=== PATIENT | male | born 1975 ===

== ENCOUNTER 2016-09-15 08:25 | Emergency (ER) | payer SELFPAY ==
[2016-09-15 09:10] LABS: BASOPHILS 0.1 % (0.0-2.0); HEMATOCRIT 45.2 % (42.0-54.0); HEMOGLOBIN 15.7 g/dL (14.0-18.0); LYMPHOCYTES 14.6 % (20.0-40.0); LYMPHOCYTES# 0.5 X 10^3uL (0.8-3.8); MEAN CORPUS. HGB CONCENTRATION 34.8 g/dL (32.0-36.0); MEAN CORPUSCULAR HEMOGLOBIN 29.6 pg (29.0-35.0); MONOCYTES# 0.2 X 10^3uL (0.2-1.0); NEUTROPHILS 80.3 % (54.0-75.0); NEUTROPHILS# 2.8 X 10^3uL (2.6-6.7); PLATELET COUNT 191 X 10^3uL (130-440); RED BLOOD COUNT 5.32 X 10^6uL (4.20-6.10); RED CELL DISTRIBUTION WIDTH 11.8 % (11.5-14.5); WHITE BLOOD COUNT 3.5 X 10^3uL (3.9-10.7)
[2016-09-15 09:20] LABS: A/G RATIO 1.2; ALBUMIN 3.7 g/dL (3.5-5.0); ALKALINE PHOSPHATASE 46 U/L (38-126); ALT 61 U/L (21-72); AST 54 U/L (17-59); BLOOD UREA NITROGEN 6 mg/dL (9-20); CALCIUM 8.3 mg/dL (8.4-10.2); CHLORIDE 103 mmol/L (98-107); EST GLOMERULAR FILTRATION RATE > 60 mL/min; GLUCOSE 120 mg/dL (70-100); POTASSIUM 3.5 mmol/L (3.5-5.1); SODIUM 135 mmol/L (137-145); TOTAL PROTEIN 6.9 g/dL (6.3-8.2)
[2016-09-15] MEDS ORDERED: KETOROLAC TROMETHAMINE 30 MG/ML VIAL ONE (09:28)
[2016-09-15] MEDS ORDERED: ONDANSETRON HCL 4 MG/2 ML VIAL ONE ×3 (09:29→12:19)
[2016-09-15] MEDS ORDERED: FENTANYL 100 MCG/2 ML VIAL ONE (12:11)
[2016-09-15] MEDS ORDERED: LIDOCAINE HCL 1% 20 ML VIAL ONE (12:30)
[2016-09-15 12:34] LABS: URINE MUCUS NONE SEEN (Up to 25%); URINE RBC NONE SEEN (0-5/hpf); URINE SQUAMOUS EPITHELIAL CELL NONE SEEN (<= 15/hpf); URINE WBC NONE SEEN (0-4/hpf)
[2016-09-15 12:42] LABS: URINE APPEARANCE CLEAR; URINE COLOR YELLOW
[2016-09-15 12:43] LABS: URINE BACTERIA NONE SEEN (<10/hpf); URINE BILIRUBIN NEGATIVE (NEGATIVE); URINE BLOOD NEGATIVE (NEGATIVE); URINE GLUCOSE NORMAL (NEGATIVE); URINE KETONE 5mg/dL (NEGATIVE); URINE LEUKOCYTE ESTERASE NEGATIVE (NEGATIVE); URINE NITRITE NEGATIVE (NEGATIVE); URINE PROTEIN NEGATIVE (NEG - TRACE); URINE UROBILINOGEN 0.2mg/dL (Normal) (NEG-1mg/dL)
[2016-09-15 14:11] LABS: CSF GLUCOSE 56 mg/dL (40-70); CSF TOTAL PROTEIN 63 mg/dL (12-60)
[2016-09-15 14:17] LABS: FLUID COLOR TUBE 1 COLORLESS (COLORLESS)
[2016-09-15 14:34] LABS: FLUID VOLUME 8 mL
--- NOTE | 2016-09-15 15:32 | ER NURSING DOCUMENTATION ---
Nurse's Notes [place] Name:Susanne Galeas Age:41 yrs Sex:Male :1975 Arrival Date:09/15/2016 Time:08:25 Bed3 Private MD: Diagnosis:Viral Syndrome - Influenza Presentation: 09/15 08:29 Presenting complaint: Patient states: fever and neck pain. lp 08:29 Acuity: CHASE 3 lp 08:47 Transition of care: Home. lp 08:47 Method Of Arrival: Private Vehicle lp 08:55 Acuity: CHASE 2 lpr Triage Assessment: 08:49 General: Appears in no apparent distress, Behavior is appropriate for age. Pain: lp Complains of pain in top of head and forehead. Historical: - Allergies: No known drug Allergies; - PMHx: None; - Tetanus: unknown. - Ebola Screening: : Patient negative for fever greater than or equal to 101.5 degrees Fahrenheit, and additional compatible Ebola Virus Disease symptoms. Patient denies exposure to infectious person. Patient denies travel to an Ebola-affected area in the 21 days before illness onset. . - Immunization history: Unable to Obtain. - Social history: Smoking status: Patient states was never smoker of tobacco. Screenin:51 Infectious Disease Risk None. Abuse screen: Denies threats or abuse. Denies injuries lp from another. Nutritional screening: No deficits noted. Vital Signs: 08:48 BP 128 / 89; Pulse 100; Resp 16; Temp 101.4; Pulse Ox 92% on R/A; Weight 72 kg; Height lp 5 ft. 6 in. (167.64 cm); 08:50 Resp 32; lp 09:04 Pulse Ox 97% ; lp 09:05 BP 128 / 76 (auto/); lp 09:14 Pulse 101 MON; Resp 31; Pulse Ox 93% ; lp 09:15 BP 115 / 79 (auto/); lp 09:54 BP 107 / 70 (auto/); lp 09:59 Pulse 95 MON; Resp 26; Pulse Ox 92% ; lp 10:00 BP 111 / 74 (auto/); lp 10:04 Pulse 94 MON; Resp 24; Pulse Ox 92% ; lp 11:00 BP 103 / 64 (auto/); lp 11:04 Pulse 93 MON; Resp 21; Pulse Ox 93% ; lp 14:44 Pulse 82 MON; Resp 23; Pulse Ox 97% ; lp 15:19 Pulse 86 MON; Resp 25; Pulse Ox 96% ; lp 08:48 Body Mass Index 25.62 (72.00 kg, 167.64 cm) lp [place] Coma Score: 08:55 Eye Response: spontaneous(4). Verbal Response: oriented(5). Motor Response: obeys tl1 commands(6). Total: 15. ED Course: 08:26 Patient arrived in ED. ds 08:29 Madhavi Linder RN is Primary Nurse. lp 08:29 Triage completed. lp 08:46 Alexx Li MD is Attending Physician. tl1 08:[address] Li notified. lp 08:51 Valuables Remains with patient Patient has correct armband on for positive lp identification. Placed in gown. Bed in low position. Call light in reach. Side rails up X 1. 09:00 Patient moved to radiology. pm1 09:07 Inserted peripheral IV: 18 gauge in right Wrist. lp 09:07 Inserted peripheral IV: 18 gauge and blood collected. lp 09:15 Patient moved back from radiology. pm1 Administered Medications: 09:06 Drug: NS 0.9% 1000 ml; Route: IV; Rate: bolus; Site: right wrist; lp 10:06 Follow up: IV Status: Completed infusion; IV Intake: 1000ml lp 09:17 Drug: Toradol 15 mg; Route: IVP; Site: right wrist; lp 11:02 Follow up: Response: Pain is decreased lp 09:57 Drug: Zofran 4 mg; Route: IVP; Infused Over: 2 mins; Site: right wrist; lp 11:03 Follow up: Response: Nausea is decreased lp 12:25 Drug: fentaNYL (PF) 100 mcg; Route: IVP; Infused Over: 3 mins; Site: right wrist; lp 13:36 Follow up: Response: Pain is decreased lp 12:30 Drug: Zofran 4 mg; Route: IVP; Infused Over: 2 mins; Site: right wrist; lp 13:36 Follow up: Response: Nausea is decreased lp Point of Care Testing: Urine Dip: 10:01 pH: 7.0; ; Specific [place]: 1.005; Ketones: Trace; Glucose: Negative; Protein: lp Negative; Leukocytes: Negative; Nitrite: Negative ; Blood: Negative; Bilirubin: Negative ; Urobilinogen: Normal Intake: 10:06 IV: 1000ml; Total: 1000ml. Outcome: 14:35 Discharge ordered by . tl1 15:25 Discharged to home ambulatory. lp 15:25 Condition: stable 15:25 Instructed on discharge instructions, follow up and referral plans. medication usage. 15:31 Patient left the ED. lp 09/17 13:51 Discharge F/U Call: Spoke with: patient. Are you having any pain? no. Did your discharge instructions answer all of your questions? yes Overall Care on a scale of 1-10 with 10 being the best care, you rate our care as: Other comments: HAD SMALL FEVER TODAY, BUT FEELING BETTER, CULTURE RESULTS NEG SO FAR. Signatures: Berenice Quarles RN RN Madhavi Linder RN RN Srot, Lou, Di Lopez RN RN [facility] Marvel Walter pm1 Alexx Li MD MD tl1
--- NOTE | 2016-09-16 09:36 | RADIOLOGY REPORT ---
Two views of the chest demonstrate the heart, vessels and lungs to be unremarkable. No infiltrate is seen. IMPRESSION: Unremarkable two views of the chest. MTDD
--- NOTE | 2016-09-17 15:31 | ER PHYSICIAN DOCUMENTATION ---
Physician Documentation [facility] Name:Susanne Galeas Age:41 yrs Sex:Male :1975 Arrival Date:09/15/2016 Time:08:25 Bed3 Private MD: Alexx Mercedes Disposition: 09/17 08:10 Chart complete. tl1 Disposition: 09/15/16 14:35 Discharged to Home/Self Care. Impression: Viral Syndrome - Influenza. - Condition is Good. - Discharge Instructions: VIRAL URI Adult - URI, Viral, No Abx (Adult). - Medical Reconciliation form form. - Follow up: Private Physician; When: 4- 6 days; Reason: Recheck today's complaints, Continuance of care. - Problem is new. - Symptoms have improved. - Notes: NO APPARENT SERIOUS ILLNESS NOW. RETURN HERE IF WORSE. MAKE SURE TO FOLLOW UP WITH A PRIMARY CARE DOCTOR WITHIN A WEEK IF THERE IS NO IMPROVEMENT IN YOUR SYMPTOMS. HPI: 09/15 08:30 This 41 yrs old /[place] Male presents to ER via Private Vehicle with tl1 complaints of Neck Problem. 08:30 The patient or guardian complains of pain. 3 day h/o cough, ST, rhinorrhea, malaise, tl1 h/a and today, fever and neck pain. No n/v. No dyspnea. No V/D and no rash. Denies urinary symptoms.. Historical: - Allergies: No known drug Allergies; - PMHx: None; - Tetanus: unknown. - Ebola Screening: : Patient negative for fever greater than or equal to 101.5 degrees Fahrenheit, and additional compatible Ebola Virus Disease symptoms. Patient denies exposure to infectious person. Patient denies travel to an Ebola-affected area in the 21 days before illness onset. . - Immunization history: Unable to Obtain. - Social history: Smoking status: Patient states was never smoker of tobacco. ROS: 08:55 Constitutional: Positive for body aches, chills, fatigue, fever, malaise. tl1 08:55 Eyes: Negative for pain, photophobia. 08:55 Neck: Positive for pain with movement, stiffness, Negative for tenderness, bony tenderness. 08:55 Cardiovascular: Negative for chest pain, orthopnea. 08:55 Respiratory: Positive for cough, Negative for pleurisy, shortness of breath, sputum production, wheezing. 08:55 Abdomen/GI: Negative for abdominal pain, nausea, vomiting, diarrhea. 08:55 : Negative for urinary symptoms. 08:55 Skin: Negative for rash. 08:55 Neuro: Negative for altered mental status, numbness, tingling, weakness. Exam: 08:55 Constitutional: The patient appears alert, awake, well developed, well hydrated, well tl1 groomed, well nourished, uncomfortable. 08:55 Head/face: Exam is negative for obvious evidence of injury or deformity, abrasion(s), barrera signs, tenderness. 08:55 Eyes: Periorbital structures: appear normal, Pupils: no acute changes, equal, round, and reactive to light and accomodation, Extraocular movements: intact throughout, Conjunctiva: normal, Lids and lashes: no acute changes. 08:55 ENT: TM's: are normal, Nose: is normal, Mouth: Oral mucosa: pink and intact, moist, Posterior pharynx: is normal, Uvula: normal, midline, swelling, is not appreciated, erythema, is not appreciated, exudate, is not appreciated. 08:55 Neck: External neck: is normal, C-spine: vertebral tenderness, is not appreciated, ROM/movement: pain, that is mild, with flexion, Meningeal signs: are not present, Lymph nodes: no appreciated lymphadenopathy. 08:55 Cardiovascular: Rate: normal, Rhythm: regular, Heart sounds: normal. 08:55 Respiratory: Respirations: normal, Breath sounds: are normal. 08:55 Abdomen/GI: Inspection: abdomen appears normal, Palpation: abdomen is soft and non-tender. 08:55 : CVA tenderness, is absent. 08:55 Neuro: Orientation: is normal, Mentation: is normal, Memory: is normal, Cranial nerves: grossly normal, Motor: moves all fours. Vital Signs: 08:48 BP 128 / 89; Pulse 100; Resp 16; Temp 101.4; Pulse Ox 92% on R/A; Weight 72 kg; Height lp 5 ft. 6 in. (167.64 cm); 08:50 Resp 32; lp 09:04 Pulse Ox 97% ; lp 09:05 BP 128 / 76 (auto/); lp 09:14 Pulse 101 MON; Resp 31; Pulse Ox 93% ; lp 09:15 BP 115 / 79 (auto/); lp 09:54 BP 107 / 70 (auto/); lp 09:59 Pulse 95 MON; Resp 26; Pulse Ox 92% ; lp 10:00 BP 111 / 74 (auto/); lp 10:04 Pulse 94 MON; Resp 24; Pulse Ox 92% ; lp 11:00 BP 103 / 64 (auto/); lp 11:04 Pulse 93 MON; Resp 21; Pulse Ox 93% ; lp 14:44 Pulse 82 MON; Resp 23; Pulse Ox 97% ; lp 15:19 Pulse 86 MON; Resp 25; Pulse Ox 96% ; lp 08:48 Body Mass Index 25.62 (72.00 kg, 167.64 cm) lp [place] Coma Score: 08:55 Eye Response: spontaneous(4). Verbal Response: oriented(5). Motor Response: obeys tl1 commands(6). Total: 15. MDM: 08:29 Patient medically screened. tl1 10:45 Data reviewed: and as a result, I will discharge patient. Data reviewed: lab test tl1 result(s), CBC, electrolytes, hepatic panel, CSF. Counseling: I had a detailed discussion with the patient and/or guardian regarding: the historical points, exam findings, and any diagnostic results supporting the discharge/admit diagnosis, lab results, the need for outpatient follow up, to return to the emergency department if symptoms worsen or persist or if there are any questions or concerns that arise at home. ED course: stable, and feeling somewhat improved by the end of his stay. 09/15 09:25 Order name: LACTATE; Complete Time: 10:41 EDMS 09/15 10:16 Interpretation: Normal: LACTATE 0.7. tl1 09/15 09:25 Order name: COMPREHENSIVE METABOLIC PANEL; Complete Time: 10:41 EDMS 09/15 10:16 Interpretation: Normal. tl1 09/15 09:25 Order name: CBC AUTO DIF, MDIF/RMOR IF IND; Complete Time: 10:41 EDMS 09/15 10:16 Interpretation: WHITE BLOOD COUNT 3.5; HEMOGLOBIN 15.7; HEMATOCRIT 45.2; PLATELET COUNT tl1 191; NEUTROPHILS 80.3; LYMPHOCYTES 14.6. 09/15 11:45 Order name: PROTIME/INR; Complete Time: 14:18 EDMS 09/17 07:26 Interpretation: Normal. tl1 09/15 12:44 Order name: UA W/ MICRO -CULTURE IF IND; Complete Time: 14:18 EDMS 09/17 07:26 Interpretation: Normal Except: URINE KETONE 5mg/dL. 1 09/15 14:18 Order name: WBC WITH DIF, CSF; Complete Time: 07:33 EDMS 09/15 14:33 Order name: CSF GLUCOSE; Complete Time: 07:33 EDMS 07 07:32 Interpretation: Normal: CSF GLUCOSE 56. 1 09/15 14:33 Order name: CSF TOTAL PROTEIN; Complete Time: 07:33 EDMS 07 07:33 Interpretation: Abnormal: CSF TOTAL PROTEIN 63. 1 09/15 15:18 Order name: CSF CULTURE AND GRAM STAIN; Complete Time: 07:33 EDMS 07 07:33 Interpretation: Normal: GRAM STAIN NO ORGANISMS SEEN; CSF CULTURE NO GROWTH TO DATE. 1 09/16 09:04 Order name: BLOOD CULTURE; Complete Time: 07:33 EDMS 07 07:33 Interpretation: Normal: BLOOD CULTURE NO GROWTH TO DATE. 1 09/16 09:04 Order name: BLOOD CULTURE; Complete Time: 07:33 EDMS 09/16 12:12 Order name: CXR 2V [id number]; Complete Time: 07:33 EDMS 07 07:33 Interpretation: NAD. SEE RADIOLOGIST REPORT. tl1 Dispensed Medications: 09:06 Drug: NS 0.9% 1000 ml; Route: IV; Rate: bolus; Site: right wrist; lp 10:06 Follow up: IV Status: Completed infusion; IV Intake: 1000ml lp 09:17 Drug: Toradol 15 mg; Route: IVP; Site: right wrist; lp 11:02 Follow up: Response: Pain is decreased lp 09:57 Drug: Zofran 4 mg; Route: IVP; Infused Over: 2 mins; Site: right wrist; lp 11:03 Follow up: Response: Nausea is decreased lp 12:25 Drug: fentaNYL (PF) 100 mcg; Route: IVP; Infused Over: 3 mins; Site: right wrist; lp 13:36 Follow up: Response: Pain is decreased lp 12:30 Drug: Zofran 4 mg; Route: IVP; Infused Over: 2 mins; Site: right wrist; lp 13:36 Follow up: Response: Nausea is decreased lp Point of Care Testing: Urine Dip: 10:01 pH: 7.0; ; Specific [place]: 1.005; Ketones: Trace; Glucose: Negative; Protein: lp Negative; Leukocytes: Negative; Nitrite: Negative ; Blood: Negative; Bilirubin: Negative ; Urobilinogen: Normal Signatures: Madhavi Linder RN RN lp Roberts, Leslie, RN RN lpr Leigh, Tom, MD MD tl1
== END 2016-09-15 15:31 | disposition home or self-care (01) ==
LOC: ER 08:25
DX: B34.9 Viral infection, unspecified (principal); R50.9 Fever, unspecified; M79.1 Myalgia; R53.83 Other fatigue; R53.81 Other malaise; R05 Cough; M54.2 Cervicalgia
CPT/HCPCS: 36415; 71020; 80053; 81001; 82945; 83605; 84157; 85007; 85025; 85610; 87040; 87070; 87205; 89051; 96361; 96374; 96375; 96376; 99284; J1885; J2405; J3010